=== PATIENT | female | born 1965 | race Caucasian/White ===

== ENCOUNTER 2017-09-20 22:38 | Emergency (ER) | payer OTHER ==
[~2017-09-20] VITALS: Ht 162.6 cm; Wt 92.0 kg
[2017-09-21] MEDS ORDERED: KETOROLAC TROMETHAMINE 60 MG/2 ML VIAL IM ONE (01:00)
[2017-09-21] MEDS ORDERED: HYDROCODONE/ACETAMINOPHEN 5-325 MG TABLET PO ONE (01:00)
[2017-09-21 03:15] LABS: BASOPHILS % (AUTO) 0.6 % (0.0-2.0); EOSINOPHILS % (AUTO) 2.7 % (1.0-6.0); HEMATOCRIT 38.3 % (36-46); HEMOGLOBIN 13.5 g/dL (12.0-16.0); LYMPHOCYTES # (AUTO) 3.7 K/uL (1.0-4.8); LYMPHOCYTES % (AUTO) 34.8 % (22.0-44.0); MEAN CORPUSCULAR HEMOGLOBIN 31.7 pg (26.0-34.0); MEAN CORPUSCULAR HGB CONC 35.3 G/dL (31.0-37.0); MEAN CORPUSCULAR VOLUME 90 fL (80-100); MONOCYTES # (AUTO) 0.5 K/uL (0.1-1.0); MONOCYTES % (AUTO) 4.9 % (2.0-9.0); NEUTROPHILS # (AUTO) 6.1 K/uL (1.8-7.7); PLATELET COUNT (AUTO) 227 K/uL (150-450); RED BLOOD CELL COUNT(AUTO) 4.28 MIL/uL (4.00-5.20); RED CELL DISTRIBUTION WIDTH 12.8 % (11.5-14.5)
[2017-09-21 03:20] LABS: ANION GAP 8 mmol/L (8-16); CALCIUM, TOTAL 9.4 mg/dL (8.8-10.5); CARBON DIOXIDE 28 mmol/L (22-29); CHLORIDE 103 mmol/L (98-107); CREATININE 0.65 mg/dL (0.60-1.30); GLOMERULAR FILTR. RATE CALC > 60 mL/min (>60); GLUCOSE,RANDOM 114 mg/dL (70-110); POTASSIUM 4.1 mmol/L (3.5-5.1); SODIUM SERUM 139 mmol/L (136-145); UREA NITROGEN, BLOOD 15 mg/dL (7-18)
[2017-09-21 03:25] LABS: ALANINE AMINOTRANSFERASE 32 U/L (12-78); ALBUMIN 3.8 g/dL (3.4-5.0); ALKALINE PHOSPHATASE 89 U/L (46-116); ASPARTATE AMINOTRANSFERASE 21 U/L (15-37); BILIRUBIN,TOTAL 0.3 mg/dL (0.1-1.0); TOTAL PROTEIN, SERUM 8.8 g/dL (6.4-8.2)
[2017-09-21 03:45] LABS: B-TYPE NATRIURETIC PEPTIDE 37 pg/mL (0-100)
[2017-09-21 04:35] VITALS: BP 147/89
== END 2017-09-21 04:47 | disposition home or self-care (01) ==
LOC: EMS 22:39
DX: S39.012A Strain of muscle, fascia and tendon of lower back, initial encounter (principal); S16.1XXA Strain of muscle, fascia and tendon at neck level, initial encounter; J18.9 Pneumonia, unspecified organism; R06.02 Shortness of breath; V43.52XA Car driver injured in collision with other type car in traffic accident, initial encounter; Y93.89 Activity, other specified; Y92.410 Unspecified street and highway as the place of occurrence of the external cause; Y99.8 Other external cause status
CPT/HCPCS: 36415; 71045; 72040; 72070; 72100; 80053; 83880; 84484; 85025; 93005; 96372; 99285; J1885

== ENCOUNTER 2018-03-22 06:25 | Day surgery (SDC) | payer OTHER ==
[~2018-03-22] VITALS: Ht 152.4 cm; Wt 91.4 kg
[2018-03-22] MEDS ORDERED: LIDOCAINE 4% 50 ML SOLUTION TP ONE (06:26)
[2018-03-22] MEDS ORDERED: LIDOCAINE 2% 30 ML JELLY TP ONE (06:26)
[2018-03-22] MEDS ORDERED: BENZOCAINE 20% 50 MCG/SPRAY 57 GM TP ONE (06:26)
[2018-03-22] MEDS ORDERED: SODIUM CHLORIDE 0.9% 1,000 ML IV ONE ×2 (06:34→07:00)
[2018-03-22] MEDS ORDERED: VITAD1000 PO (06:54)
[2018-03-22] MEDS ORDERED: ATOR40TA28 PO (06:54)
[2018-03-22] MEDS ORDERED: ACET325T47 PO (06:54)
[2018-03-22] MEDS ORDERED: ALBU8.5H8 IH (06:54)
[2018-03-22] MEDS ORDERED: HYDR25TA PO (06:54)
[2018-03-22] MEDS ORDERED: RANI150T7 PO (06:54)
[2018-03-22] MEDS ORDERED: MONT10TA21 PO (06:54)
[2018-03-22] MEDS ORDERED: FLUT16H NASAL (06:54)
[2018-03-22] MEDS ORDERED: ASPI-1182 PO (06:54)
[2018-03-22] MEDS ORDERED: LISI-662 PO (06:54)
[2018-03-22] MEDS ORDERED: IBUP-1506 PO (06:54)
[2018-03-22] MEDS ORDERED: GABA-529 PO (06:54)
[2018-03-22] MEDS ORDERED: LEVO500 PO (06:54)
[2018-03-22] MEDS ORDERED: BACL10TA PO (06:54)
[2018-03-22] MEDS ORDERED: PRED10 PO (06:54)
[2018-03-22] MEDS ORDERED: FentaNYL CITRATE-PF 100 MCG/2 ML VIAL ONE (08:05)
[2018-03-22] MEDS ORDERED: MIDAZOLAM HCL 2 MG/2 ML VIAL ONE (08:05)
[2018-03-22] MEDS ORDERED: MethylPREDNISolone SOD SUCC 125 MG/2 ML VIAL ONE (08:57)
[2018-03-22] MEDS ORDERED: MethylPREDNISolone SOD SUCC 125 MG/2 ML VIAL IVP ONE (09:00)
[2018-03-22] MEDS ORDERED: OXYGEN THERAPY IH SCH (20:00)
== END 2018-03-22 10:15 | disposition home or self-care (01) ==
LOC: SURGERY 06:25
PROVIDERS: ATTEND Internal Medicine Critical Care Medicine
DX: J38.4 Edema of larynx (principal); B37.0 Candidal stomatitis; J84.111 Idiopathic interstitial pneumonia, not otherwise specified; J98.09 Other diseases of bronchus, not elsewhere classified; J98.8 Other specified respiratory disorders; I10 Essential (primary) hypertension; E78.00 Pure hypercholesterolemia, unspecified; I70.0 Atherosclerosis of aorta; Z86.11 Personal history of tuberculosis; Z79.891 Long term (current) use of opiate analgesic; Z79.82 Long term (current) use of aspirin; Z79.1 Long term (current) use of non-steroidal anti-inflammatories (NSAID); Z79.899 Other long term (current) drug therapy
CPT/HCPCS: 31623; 31624; 71045; 87015; 87070; 87205; 87206; 87220; 88108; 88312; J2250; J2930; J3010; J7030

== ENCOUNTER 2018-09-06 08:31 | Emergency (ER) | payer OTHER ==
[~2018-09-06] VITALS: Ht 152.4 cm; Wt 90.9 kg
[~2018-09-06 08:31] MED LIST: ACET325T47 PO; ALBU8.5H8 IH; ASPI-1182 PO; ATOR40TA28 PO; BACL10TA PO; FLUT16H NASAL; GABA-529 PO; HYDR25TA PO; IBUP-1506 PO; LEVO500 PO; LISI-662 PO; MONT10TA21 PO; PRED10 PO; RANI150T7 PO; VITAD1000 PO
[2018-09-06 13:15] VITALS: BP 149/86
== END 2018-09-06 13:20 | disposition home or self-care (01) ==
LOC: EMS 08:31
DX: S82.141A Displaced bicondylar fracture of right tibia, initial encounter for closed fracture (principal); S83.8X1A Sprain of other specified parts of right knee, initial encounter; F32.9 Major depressive disorder, single episode, unspecified; I10 Essential (primary) hypertension; Z79.82 Long term (current) use of aspirin; Z79.899 Other long term (current) drug therapy; W18.2XXA Fall in (into) shower or empty bathtub, initial encounter; Y93.89 Activity, other specified; Y92.098 Other place in other non-institutional residence as the place of occurrence of the external cause; Y99.8 Other external cause status
CPT/HCPCS: 29505; 73700